=== PATIENT | female | born 1930 | race Hispanic/Latino ===

== ENCOUNTER 2018-02-28 17:29 | Emergency (ER) | payer OTHER ==
--- OUTSIDE RECORDS SUMMARY | 2018-02-28 17:31 | XMS REPORT ---
:1930 [facility] Address [address] [place] [address] [address] Care Team Providers Name Role Phone GEOFF VALDEZ Unavailable Unavailable Problems This patient has no known problems. Allergies, Adverse Reactions, Alerts This patient has no known allergies or adverse reactions. Medications This patient has no known medications. Encounters Start End Encounter Admission Attending Care Care Encounter Date/Time Date/Time Type Type Clinicians Facility Department ID 2017-10-27 2017-11-27 Outpatient C TERA VALDEZ BALANCE PT [id number] 09:40:00 23:59:00 GEOFF
[2018-02-28 18:22] LABS: Urine Blood 1+ (NEG); Urine Glucose NEGATIVE (NEG); Urine Protein TRACE (NEG); Urine Specific Gravity 1.015 (1.005-1.030); Urine pH 5.5 (5.0-7.0)
[2018-02-28 18:35] LABS: Absolute Lymphocytes (CBC) 0.5 K/uL (0.7-4.9); Absolute Monocytes 0.4 K/uL (0.1-1.3); Absolute Neutrophil 5.3 K/uL (1.8-8.0); Basophils % 0.4 % (0-1.3); Eosinophils % 0.2 % (0-4.4); Hematocrit 40.9 % (36.0-45.0); Lymphocytes % 8.7 % (15.3-44.8); MCH 38.5 pg (27.0-35.0); MCV 111.9 fL (80-100); MPV 8.7 fL (7.6-11.3); Monocytes % 6.2 % (3.3-12.3); RBC Red Blood Cell Count 3.66 M/uL (3.86-4.86)
[2018-02-28 18:37] LABS: Protime INR 1.05
[2018-02-28 18:54] LABS: ALT/SGPT 32 U/L (12-78); AST/SGOT 21 U/L (15-37); Albumin 4.3 g/dL (3.4-5.0); Alkaline Phosphatase 75 U/L (45-117); BUN Blood Urea Nitrogen 20 mg/dL (7-18); Bicarbonate 25 mmol/L (21-32); Bilirubin Direct 0.3 mg/dL (0-0.2); Bilirubin Total 1.3 mg/dL (0.2-1.0); Glucose Level 153 mg/dL (74-106); Magnesium 2.4 mg/dL (1.8-2.4); NT PRO-BNP 95 pg/mL (<450); Potassium 4.1 mmol/L (3.5-5.1); Protein, Total 8.8 g/dL (6.4-8.2); Sodium Level 136 mmol/L (136-145); Troponin (Emerg Dept Use Only) < 0.02 ng/mL (0.0-0.045)
[2018-02-28 19:00] LABS: Blood Morphology Comment NOTED (NOT SEEN); Macrocytosis 2+; Platelet Estimate INCR; Urine White Blood Cell Casts OK
[2018-02-28] MEDS ORDERED: NA CHLORIDE 0.9% 1,000 ML ONE (19:17)
[2018-02-28] MEDS ORDERED: ACETAMINOPHEN 500 MG TAB ONE (19:17)
--- NOTE | 2018-02-28 19:36 | RAD REPORT ---
EXAM DESCRIPTION: RAD - Chest Pa And Lat (2 Views) - 02/28/2018 7:04 pm CLINICAL HISTORY: Fever COMPARISON: October 2016 TECHNIQUE: PA and lateral views of the chest were obtained. FINDINGS: The lungs are clear of a peripheral mass or consolidation. No vascular engorgement. Hear t size is normal. Interstitial markings are prominent. This is similar to comparison. No pleural effu krysta or pneumothorax seen. Osteopenic and degenerative bony changes are present. There is bi concave configuration to multiple thoracic vertebrae similar to comparison. No aortic abnormality. IMPRESSION: Chronic interstitial lung disease is present not clearly different from comparison. This could potentially mask early stages of interstitial edema or infiltrate.
[2018-02-28] MEDS ORDERED: CEFTRIAXONE/SWI 1gm 1 GM/10 ML SYR ONE ×2 (20:07→20:23)
--- NOTE | 2018-02-28 20:09 | EDPHYS ---
Physician Documentation [facility] Name: Ruby Reyes Age: 87 yrs Sex: Female : 1930 Arrival Date: 02/28/2018 Time: 17:32 Bed 6 Private MD: ED Physician Jet Wynn HPI: 02/28 17:52 This 87 yrs old Female presents to ER via Ambulatory with complaints of Fever. jmm 17:52 The patient reports fever, not measured (subjective). Onset: The symptoms/episode jmm began/occurred today. Associated signs and symptoms: Pertinent positives: chills, Pertinent negatives: abdominal pain, chest pain, cough, headache, shortness of breath, sore throat. This is an 87 year old female with a history of HTN that presents to the ED with complaints of chills today. Denies chest pain, cough, shortness of breath, abdominal pain, dysuria. . Historical: - Allergies: 17:40 No Known Allergies; hj - Home Meds: 17:40 hydroxyurea 500 mg Oral cap 1 cap twice a day [Active]; telmisartan-hydrochlorothiazid hj 40-12.5 mg oral tab 1 tab once daily [Active]; - PMHx: 17:40 Hypertension; hj - PSHx: 17:40 Knee surgery; hj - Immunization history:: Adult Immunizations up to date. - Social history:: Smoking status: Patient/guardian denies using tobacco, Patient/guardian denies using alcohol. - Ebola Screening: : Patient negative for fever greater than or equal to 101.5 degrees Fahrenheit, and additional compatible Ebola Virus Disease symptoms Patient denies exposure to infectious person Patient denies travel to an Ebola-affected area in the 21 days before illness onset. ROS: 17:52 Cardiovascular: Negative for chest pain, palpitations, and edema, Respiratory: Negative jmm for shortness of breath, cough, wheezing, and pleuritic chest pain, Abdomen/GI: Negative for abdominal pain, nausea, vomiting, diarrhea, and constipation, Neuro: Negative for headache, weakness, numbness, tingling, and seizure. 17:52 Constitutional: Positive for chills, fever. 17:52 All other systems are negative. Exam: 17:52 Constitutional: This is a well developed, well nourished patient who is awake, alert, jmm and in no acute distress. Head/Face: atraumatic. Eyes: EOMI, no conjunctival erythema appreciated ENT: Moist Mucus Membranes Neck: Trachea midline, Supple Chest/axilla: Normal chest wall appearance and motion. 17:52 Cardiovascular: Rate: normal, Rhythm: regular. 17:52 Respiratory: the patient does not display signs of respiratory distress, Respirations: normal, Breath sounds: are clear throughout. 17:52 Abdomen/GI: Inspection: abdomen appears normal, Bowel sounds: normal, Palpation: abdomen is soft and non-tender, in all quadrants. 17:52 Back: ROM is normal. 17:52 Musculoskeletal/extremity: ROM: intact in all extremities. 17:52 Skin: Appearance: Color: normal in color. 17:52 Neuro: Orientation: is normal, Mentation: is normal, Memory: is normal. 17:52 Psych: Behavior/mood is pleasant, cooperative. Vital Signs: 17:41 BP 135 / 61; Pulse 96; Resp 18; Temp 101.1(O); Pulse Ox 93% on R/A; Weight 74.84 kg; hj Height 5 ft. 1 in. (154.94 cm); Pain 0/10; 18:32 BP 155 / 71; Pulse 96; Resp 22; Pulse Ox 95% on R/A; aj1 19:14 BP 151 / 65; Pulse 95; Resp 24; Pulse Ox 94% on R/A; lp1 20:15 BP 133 / 55; Pulse 92; Resp 18; Temp 98.9(O); Pulse Ox 95% on R/A; Pain 0/10; aa1 17:41 Body Mass Index 31.18 (74.84 kg, 154.94 cm) MDM: 17:52 Patient medically screened. [facility] 20:07 Data reviewed: vital signs, nurses notes. Data interpreted:. Counseling: I had a [facility] detailed discussion with the patient and/or guardian regarding: the historical points, exam findings, and any diagnostic results supporting the discharge/admit diagnosis, lab results, radiology results, the need for outpatient follow up, to return to the emergency department if symptoms worsen or persist or if there are any questions or concerns that arise at home. ED course: Patient is alert and non toxic in appearance in the ED. Patient will be prescribed oral antibiotics and is advised to follow up with PCP. Family is given strict return precautions. . 02/28 17:54 Order name: Basic Metabolic Panel [facility] 02/28 17:54 Order name: CBC with Diff [facility] 02/28 17:54 Order name: LFT's [facility] 02/28 17:54 Order name: Magnesium [facility] 02/28 17:54 Order name: NT PRO-BNP [facility] 02/28 17:54 Order name: PT-INR [facility] 02/28 17:54 Order name: Troponin (emerg Dept Use Only) [facility] 02/28 17:56 Order name: Lactate [facility] 02/28 17:56 Order name: Procalcitonin [facility] 02/28 17:56 Order name: Blood Culture Adult (2) [facility] 02/28 17:56 Order name: Flu [facility] 02/28 18:02 Order name: Urine Dipstick--Ancillary (enter results) 02/28 18:22 Order name: Urine Dipstick-Ancillary; Complete Time: 18:30 EDMS 02/28 18:39 Order name: CBC with Automated Diff; Complete Time: 19:07 EDMS 02/28 17:54 Order name: Chest Pa And Lat (2 Views) XRAY [facility] 02/28 18:42 Order name: Protime (+INR); Complete Time: 18:49 EDMS 02/28 18:49 Order name: Influenza Screen (A ; Complete Time: 18:50 EDMS 02/28 18:53 Order name: Lactate; Complete Time: 18:58 EDMS 02/28 18:54 Order name: Basic Metabolic Panel; Complete Time: 18:58 EDMS 02/28 18:54 Order name: Liver (Hepatic) Function; Complete Time: 18:58 EDMS 02/28 18:54 Order name: Troponin (Emerg Dept Use Only); Complete Time: 18:58 EDMS 02/28 18:54 Order name: NT PRO-BNP; Complete Time: 18:58 EDMS 02/28 18:54 Order name: Magnesium; Complete Time: 18:58 EDMS 02/28 19:00 Order name: CBC Smear Scan; Complete Time: 19:07 EDMS 02/28 19:27 Order name: Procalcitonin; Complete Time: 19:48 EDMS 02/28 19:37 Order name: RAD; Complete Time: 19:48 EDMS 02/28 17:54 Order name: EKG; Complete Time: 17:[address] [facility] 02/28 17:54 Order name: Cardiac monitoring; Complete Time: 18:[address] [facility] 02/28 17:54 Order name: EKG - Nurse/Tech; Complete Time: 18:[address] [facility] 02/28 17:54 Order name: IV Saline Lock; Complete Time: 18:[address] [facility] 02/28 17:54 Order name: Labs collected and sent; Complete Time: 18:[address] [facility] 02/28 17:54 Order name: O2 Per Protocol; Complete Time: 18:[address] [facility] 02/28 17:54 Order name: O2 Sat Monitoring; Complete Time: 18:[address] [facility] 02/28 17:54 Order name: Urine Dipstick-Ancillary (obtain specimen); Complete Time: 18:[address] [facility] Administered Medications: 19:13 Drug: NS 0.9% 1000 ml Route: IV; Rate: 1 bolus; Site: right antecubital; lp1 20:15 Follow up: IV Status: Completed infusion aa1 19:14 Drug: Tylenol 1000 mg Route: PO; lp1 20:15 Follow up: Response: No adverse reaction; Temperature is decreased aa1 20:10 Drug: Rocephin 1 grams Route: IV; Rate: calculated rate; Site: right antecubital; aa1 20:15 Follow up: IV Status: Completed infusion aa1 20:11 CANCELLED (Other Intervention Used): Rocephin - (cefTRIAXone) 1 grams IVPB once over 30 aa1 mins; (mix in 50 mL NS) Disposition: 03/01 16:28 Co-signature as Attending Physician, Jet Wynn MD. Disposition: 02/28/18 20:08 Discharged to Home. Impression: Urinary tract infection, site not specified. - Condition is Stable. - Discharge Instructions: Urinary Tract Infection, Adult. - Prescriptions for cefdinir 300 mg Oral capsule - take 1 capsule by ORAL route every 12 hours for 10 days; 20 capsule. - Medication Reconciliation Form, Thank You Letter, Antibiotic Education, Prescription Opioid Use form. - Follow up: Private Physician; When: 2 - 3 days; Reason: Recheck today's complaints, Continuance of care, Re-evaluation by your physician. Signatures: Dispatcher [employer] Yenny Darling RN RN aa1 Eric Peterson PA PA jmm Amanda Orr RN RN lp1 Casey Brian RN RN hj Jet Wynn MD MD gs Corrections: (The following items were deleted from the chart) 02/28 20:11 19:57 Rocephin - (cefTRIAXone) 1 grams IVPB once over 30 mins; (mix in 50 mL NS) aa1 ordered. mae 20:35 20:08 02/28/2018 20:08 Discharged to Home. Impression: Urinary tract infection, site aa1 not specified. Condition is Stable. Forms are Medication Reconciliation Form, Thank You Letter, Antibiotic Education, Prescription Opioid Use. Follow up: Private Physician; When: 2 - 3 days; Reason: Recheck today's complaints, Continuance of care, Re-evaluation by your physician. mae
--- NOTE | 2018-02-28 20:09 | ER ---
Nurse's Notes 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 Transition of care: patient was not received from another setting of care. Onset of symptoms was February 28, 2018. Risk Assessment: Do you want to hurt yourself or someone else? Patient reports no desire to harm self or others. Initial Sepsis Screen: Does the patient meet any 2 criteria? No. Patient's initial sepsis screen is negative. Does the patient have a suspected source of infection? No. Patient's initial sepsis screen is negative. Care prior to arrival: None. 17:37 Method Of Arrival: Ambulatory 17:37 Acuity: MONICA 3 hj Triage Assessment: 17:40 General: Appears in no apparent distress. uncomfortable, Behavior is calm, cooperative, hj appropriate for age. Pain: Denies pain. Historical: - Allergies: 17:40 No Known Allergies; hj - Home Meds: 17:40 hydroxyurea 500 mg Oral cap 1 cap twice a day [Active]; telmisartan-hydrochlorothiazid hj 40-12.5 mg oral tab 1 tab once daily [Active]; - PMHx: 17:40 Hypertension; hj - PSHx: 17:40 Knee surgery; hj - Immunization history:: Adult Immunizations up to date. - Social history:: Smoking status: Patient/guardian denies using tobacco, Patient/guardian denies using alcohol. - Ebola Screening: : Patient negative for fever greater than or equal to 101.5 degrees Fahrenheit, and additional compatible Ebola Virus Disease symptoms Patient denies exposure to infectious person Patient denies travel to an Ebola-affected area in the 21 days before illness onset. Screenin:40 Abuse screen: Denies threats or abuse. Denies injuries from another. Nutritional hj screening: No deficits noted. Tuberculosis screening: No symptoms or risk factors identified. Fall Risk None identified. Assessment: 18:00 General: Appears in no apparent distress. uncomfortable, Behavior is calm, cooperative, aj1 appropriate for age. Pain: Denies pain. Neuro: Level of Consciousness is awake, alert, obeys commands. Cardiovascular: Patient's skin is warm and dry. Rhythm is regular. Respiratory: Airway is patent Respiratory effort is even, unlabored, Respiratory pattern is regular, symmetrical, Breath sounds are clear bilaterally. GI: No signs and/or symptoms were reported involving the gastrointestinal system. : No signs and/or symptoms were reported regarding the genitourinary system. EENT: No signs and/or symptoms were reported regarding the EENT system. Derm: No signs and/or symptoms reported regarding the dermatologic system. Musculoskeletal: No signs and/or symptoms reported regarding the musculoskeletal system. 19:14 Reassessment: Patient appears in no apparent distress at this time. General: Behavior lp1 is calm, Reports chills for. Pain: Denies pain. Neuro: Level of Consciousness is awake, alert, obeys commands, Oriented to person, place, situation. Respiratory: Respiratory effort is even. Derm: Skin is pink, warm \T\ dry. 20:15 Reassessment: Patient appears in no apparent distress at this time. Patient is alert, aa1 oriented x 3, equal unlabored respirations, skin warm/dry/pink. Discussed d/c \T\ f/u instructions with pt \T\ family; denies questions or concerns at this time Patient states feeling better. Vital Signs: 17:41 BP 135 / 61; Pulse 96; Resp 18; Temp 101.1(O); Pulse Ox 93% on R/A; Weight 74.84 kg; Height 5 ft. 1 in. (154.94 cm); Pain 0/10; 18:32 BP 155 / 71; Pulse 96; Resp 22; Pulse Ox 95% on R/A; aj1 19:14 BP 151 / 65; Pulse 95; Resp 24; Pulse Ox 94% on R/A; lp1 20:15 BP 133 / 55; Pulse 92; Resp 18; Temp 98.9(O); Pulse Ox 95% on R/A; Pain 0/10; aa1 17:41 Body Mass Index 31.18 (74.84 kg, 154.94 cm) ED Course: 17:32 Patient arrived in ED. as 17:39 Triage completed. hj 17:41 Arm band placed on right wrist. hj 17:41 Patient has correct armband on for positive identification. Bed in low position. Call hj light in reach. Side rails up X 1. Adult w/ patient. 17:44 Eric Peterson PA is PHCP. [facility] 17:44 Jet Wynn MD is Attending Physician. [facility] 17:50 Flory Cummings RN is Primary Nurse. aj1 18:00 No provider procedures requiring assistance completed. aj1 18:33 Inserted saline lock: 20 gauge in right antecubital area, using aseptic technique. aj1 Blood collected. 18:34 Initial lab(s) drawn, by wa, sent to lab. First set of blood cultures drawn by me. aj1 18:56 Second set of blood cultures drawn by me, by venipuncture 23G to left wrist. dh3 19:01 X-ray completed. Patient tolerated procedure well. sg4 20:15 IV discontinued, intact, bleeding controlled, No redness/swelling at site. Pressure aa1 dressing applied. Administered Medications: 19:13 Drug: NS 0.9% 1000 ml Route: IV; Rate: 1 bolus; Site: right antecubital; lp1 20:15 Follow up: IV Status: Completed infusion aa1 19:14 Drug: Tylenol 1000 mg Route: PO; lp1 20:15 Follow up: Response: No adverse reaction; Temperature is decreased aa1 20:10 Drug: Rocephin 1 grams Route: IV; Rate: calculated rate; Site: right antecubital; aa1 20:15 Follow up: IV Status: Completed infusion aa1 20:11 CANCELLED (Other Intervention Used): Rocephin - (cefTRIAXone) 1 grams IVPB once over 30 aa1 mins; (mix in 50 mL NS) Outcome: 20:08 Discharge ordered by . jm 20:15 Discharged to home ambulatory, with family. aa1 20:15 Condition: stable 20:15 Instructed on discharge instructions, follow up and referral plans. medication usage, Demonstrated understanding of instructions, follow-up care, medications, Prescriptions given X 1. 20:35 Patient left the ED. aa1 Addendum: 03/06/2018 07:49 Addendum: Culture Results: Positive blood culture. pt was advised to follow up with PCP i w after discharge, culture report reviewed by LALIT Wright, no further action needed. Signatures: Flory Cummings, RN RN aj1 Yenny Morales RN RN aa1 Eric Peterson PA PA jmm Martinez, Amelia as Williams, Irene, RN FLORENCIA iw Amanda Orr RN RN lp1 Casey Brian RN RN Renetta Laguerre 3 Cheryl De Jesus 4 Corrections: (The following items were deleted from the chart) 02/28 17:43 17:41 Pulse 96bpm; Resp 18bpm; Pulse Ox 93% RA; Temp 101.1F Oral; 74.84 kg; Height 5 hj ft. 1 in.; BMI: 31.1; Pain 0/10; hj
[2018-02-28 20:44] VITALS: BP 133/55; TEMP 98.9; O2SAT 95
--- NOTE | 2018-03-01 07:05 | EKG ---
Test Date: 2018-02-28 Test Time: 18:04:55 Clipper Counters: SARA MEASUREMENT RESULTS: Intervals: Rate: 92 MN: 190 QRSD: 82 QT: 356 QTc: 440 [place]: P: 36 MN: 190 QRS: 27 T: 62 INTERPRETIVE STATEMENTS: Sinus rhythm with marked sinus arrhythmia Nonspecific ST and T wave abnormality Abnormal ECG No previous ECG available for comparison Electronically Signed On 03-01-18 07:03:58 BOTTOMER OPERATOR by Jon Sol
== END 2018-02-28 20:35 | disposition home or self-care (01) ==
LOC: ER 17:29
DX: N39.0 Urinary tract infection, site not specified (principal); I10 Essential (primary) hypertension
CPT/HCPCS: 36415; 71046; 80048; 80076; 81003; 83605; 83735; 83880; 84145; 84484; 85025; 85610; 87040 ×2; 87077; 87186; 87205; 87804 ×2; 93005; 96361; 96374; 99284; J0696 ×2; J7030

== ENCOUNTER 2019-10-08 09:23 | Emergency (ER) | payer OTHER ==
--- OUTSIDE RECORDS SUMMARY | 2019-10-08 09:26 | XMS REPORT | Continuity of Care Document ---
:1930 Author Organization [facility] t Address [address] [place] [address] Dr. Hansen [address] [place] [id number] Care Team Providers Name Role Phone COURTNEY Attending Clinician Unavailable COURTNEY Admitting Clinician Unavailable Problems This patient has no known problems. Allergies, Adverse Reactions, Alerts This patient has no known allergies or adverse reactions. Medications This patient has no known medications. Procedures This patient has no known procedures. Encounters Start End Encounter Admission Attending Care Care Encounter Source Date/Time Date/Time Type Type Clinicians Facility Department ID 2017-10-27 2017-11-27 Outpatient C TERA VALDEZ BALANCE PT [id number] [facility] 09:40:00 23:59[facility]00 [facility] Results This patient has no known results.
[2019-10-08 10:32] LABS: Urine Blood TRACE (NEG); Urine Glucose NEGATIVE (NEG); Urine Protein TRACE (NEG); Urine Specific Gravity 1.025 (1.005-1.030)
[2019-10-08 10:54] LABS: Absolute Lymphocytes (CBC) 0.6 K/uL (0.7-4.9); Basophils % 0.3 % (0-1.3); Hematocrit 31.2 % (36.0-45.0); Lymphocytes % 14.2 % (15.3-44.8); MPV 8.8 fL (7.6-11.3); RBC Red Blood Cell Count 2.83 M/uL (3.86-4.86)
[2019-10-08] MEDS ORDERED: ACETAMINOPHEN 500 MG TAB ONE (11:05)
[2019-10-08 11:15] LABS: Albumin 3.5 g/dL (3.4-5.0); Bilirubin Total 0.9 mg/dL (0.2-1.0); Potassium 4.2 mmol/L (3.5-5.1); Protein, Total 8.1 g/dL (6.4-8.2)
--- NOTE | 2019-10-08 11:24 | RAD REPORT ---
EXAM DESCRIPTION: RAD - Chest Single View - 10/08/2019 10:30 am CLINICAL HISTORY: COUGH, decreased taste sensation, spouse with COVID infection COMPARISON: Two view chest February 2018 TECHNIQUE: AP portable chest image was obtained 10/08/2019 10:30 am . FINDINGS: No focal consolidations seen. Patient has a prominent baseline interstitial pattern increa sed from a slightly more shallow inspiratory effort. Hazy airspace opacification is present. Mild car diomegaly is present. There is mild vascular engorgement as well. Trachea is midline. No measurable p leural effusion and no pneumothorax. No acute bony abnormality seen. No acute aortic findings suspect ed. IMPRESSION: Mild cardiomegaly, vascular engorgement and prominent interstitial pattern would all be consistent with a minimal failure or volume overload superimposed on chronic interstitial lung diseas e. Patient does have some patchy bilateral alveolar opacification. In the setting of a spouse with posit siobhan COVID test, early COVID-19 pneumonia cannot be excluded.
[2019-10-08] MEDS ORDERED: NA CHLORIDE 0.9% 1,000 ML ONE (11:55)
[2019-10-08] MEDS ORDERED: dexAMETHasone 10 MG/ML VIAL ONE (11:55)
[2019-10-08 12:24] LABS: Blood Morphology Comment NOT SEEN (NOT SEEN); Platelet Estimate ADEQ; Urine White Blood Cell Casts OK
--- NOTE | 2019-10-08 12:45 | ER ---
Nurse's Notes [facility] Name: Ruby Reeys Age: 88 yrs Sex: Female : 1930 Arrival Date: 10/08/2019 Time: 09:27 Bed 18 Private MD: Diagnosis: Coronavirus as the cause of diseases classified elsewhere;Dehydration Presentation: 10/07 09:50 Chief complaint: Patient states: that she feels anxious and has not had much of an appetite, food does not taste good to her. Legs feel achy. currently has covid. Coronavirus screen: Patient denies a cough. Patient denies shortness of breath or difficulty breathing. Patient reports a measured and/or subjective temperature greater than 100.4F. Patient denies travel on a cruise ship or to a country the [facility] currently lists as an affected area. Patient reports contact with known and/or suspected case of COVID-19. Patient instructed to continue to wear a mask when interacting with others. Patient moved to private room, placed in contact and droplet isolation with eye protection until further assessment. Ebola Screen: No symptoms or risks identified at this time. Initial Sepsis Screen: Does the patient meet any 2 criteria? No. Patient's initial sepsis screen is negative. Does the patient have a suspected source of infection? No. Patient's initial sepsis screen is negative. Risk Assessment: Do you want to hurt yourself or someone else? Patient reports no desire to harm self or others. Onset of symptoms is unknown. 09:50 Method Of Arrival: Ambulatory 09:50 Acuity: MONICA 3 Historical: - Allergies: 09:55 No Known Allergies; - PMHx: 09:55 Hypertension; - PSHx: 09:55 Cholecystectomy; - Immunization history:: Adult Immunizations unknown. - Social history:: Smoking status: Patient denies any tobacco usage or history of. Screenin:52 Abuse screen: Denies threats or abuse. Nutritional screening: No deficits noted. Tuberculosis screening: No symptoms or risk factors identified. Fall Risk None identified. Assessment: 10:10 General: Appears in no apparent distress. Behavior is calm, cooperative, appropriate for age. Pain: Complains of pain in sudha legs. Neuro: Level of Consciousness is awake, alert, obeys commands, Oriented to person, place, time, situation. Cardiovascular: Capillary refill < 3 seconds Patient's skin is warm and dry. Respiratory: Airway is patent Respiratory effort is even, unlabored. GI: Patient currently denies nausea, vomiting, decreased appetite and sense of taste. Derm: Skin is intact, is healthy with good turgor, Skin is dry. 11:15 Reassessment: Patient and/or family updated on plan of care and expected duration. Pain ah level reassessed. Patient is alert, oriented x 3, equal unlabored respirations, skin warm/dry/pink. No needs voiced. 13:00 Reassessment: Called granddaughter to give her an update and let her know she was ready ah for discharge, upon entering the room the fluids were still running. Informed granddaughter we would notify her when fluids were finished. Granddaughter voiced understanding. 14:35 Reassessment: Fluids completed. Pt toletated well. Vital Signs: 09:50 BP 139 / 54; Pulse 82; Resp 16; Temp 100.2; Pulse Ox 94% ; ah 13:45 BP 128 / 54; Pulse 74; Resp 16; Pulse Ox 96% ; ah ED Course: 09:27 Patient arrived in ED. ag5 09:33 Magdi Harper, TIGHTENER is PHCP. pm1 09:33 Raphael Lindo MD is Attending Physician. pm1 09:50 Trudi Sol, RN is Primary Nurse. 09:54 Triage completed. 10:31 CXR XRAY In Process Unspecified. EDMS 10:37 Patient has correct armband on for positive identification. Placed in gown. Bed in low mh5 position. Call light in reach. Side rails up X 1. Pillow given. quality assurance monitor chassis on. Pulse ox on. NIBP on. 10:37 EKG done, by ED staff, reviewed by Magdi Harper NP. mh5 10:52 Arm band placed on right wrist. Patient notified of wait time. 11:58 Inserted saline lock: 22 gauge in right antecubital area, using aseptic technique. hb Blood collected. 14:36 No provider procedures requiring assistance completed. IV discontinued, intact, ah bleeding controlled, No redness/swelling at site. Pressure dressing applied. Administered Medications: 10:55 Drug: Tylenol 1000 mg Route: PO; 12:10 Follow up: Response: No adverse reaction 11:58 Drug: NS 0.9% 1000 ml Route: IV; Rate: 1000 ml; Site: right antecubital; hb 12:43 Follow up: Response: No adverse reaction; IV Status: Completed infusion 11:59 Drug: Decadron - Dexamethasone 10 mg Route: IVP; Site: right antecubital; hb 12:43 Follow up: Response: No adverse reaction Outcome: 12:44 Discharge ordered by MD. pm1 14:35 Discharged to home ambulatory. 14:35 Condition: good 14:35 Discharge instructions given to patient, Instructed on discharge instructions, follow up and referral plans. Demonstrated understanding of instructions, follow-up care, Prescriptions given X 1. 14:36 Patient left the ED. Signatures: Dispatcher [employer] Magdi Vieyra NP TIGHTENER pm1 Janine Ríos, RN RN Daisy Scott [facility] Jessica Lentz 5 Trudi Sol RN RN
--- NOTE | 2019-10-08 12:45 | EDPHYS ---
Physician Documentation [facility] Name: Ruby Reyes Age: 88 yrs Sex: Female : 1930 Arrival Date: 10/08/2019 Time: 09:27 Bed 18 Private MD: ED Physician Raphael Lindo HPI: 10/07 10:04 This 88 yrs old Female presents to ER via Ambulatory with complaints of pm1 Decreased Appetite, Weakness, Leg Pain, Back Pain. 10:04 Decreased appetite, food tastes different, generalized weakness and body aches. Onset: pm1 The symptoms/episode began/occurred yesterday. Severity of symptoms: in the emergency department the symptoms are worse. The patient has not experienced similar symptoms in the past. Patient's family member was diagnosed with covid-19, was hospitalized and discharged today. Patient without chest pain, shortness of breath, or cough. Historical: - Allergies: 09:55 No Known Allergies; ah - PMHx: 09:55 Hypertension; ah - PSHx: 09:55 Cholecystectomy; ah - Immunization history:: Adult Immunizations unknown. - Social history:: Smoking status: Patient denies any tobacco usage or history of. ROS: 10:04 Eyes: Negative for injury, pain, redness, and discharge, ENT: Negative for injury, pm1 pain, and discharge, Neck: Negative for injury, pain, and swelling, Cardiovascular: Negative for chest pain, palpitations, and edema, Respiratory: Negative for shortness of breath, cough, wheezing, and pleuritic chest pain, Abdomen/GI: Negative for abdominal pain, nausea, vomiting, diarrhea, and constipation, Back: Negative for injury and pain, : Negative for injury, bleeding, discharge, and swelling, MS/Extremity: Negative for injury and deformity, Skin: Negative for injury, rash, and discoloration. 10:04 Constitutional: Positive for body aches, poor PO intake, Negative for chills, fever. 10:04 Neuro: Positive for Generalized weakness, Negative for altered mental status, dizziness, headache, numbness, tingling. Exam: 10:04 Constitutional: This is a well developed, well nourished patient who is awake, alert, pm1 and in no acute distress. Head/Face: Normocephalic, atraumatic. 10:04 Back: No spinal tenderness. No costovertebral tenderness. Full range of motion. Skin: Warm, dry with normal turgor. Normal color with no rashes, no lesions, and no evidence of cellulitis. MS/ Extremity: Pulses equal, no cyanosis. Neurovascular intact. Full, normal range of motion. 10:04 Cardiovascular: Exam negative for acute changes, Rate: normal, Rhythm: regular, Pulses: no pulse deficits are appreciated, Edema: is not appreciated. 10:04 Respiratory: Exam negative for acute changes, respiratory distress, shortness of breath. 10:04 Abdomen/GI: Exam negative for acute changes, Inspection: abdomen appears normal, Palpation: abdomen is soft and non-tender, in all quadrants, mass, is not appreciated. 10:04 Neuro: Exam negative for acute changes, Orientation: is normal, Mentation: is normal, Motor: is normal, moves all fours. Vital Signs: 09:50 BP 139 / 54; Pulse 82; Resp 16; Temp 100.2; Pulse Ox 94% ; ah 13:45 BP 128 / 54; Pulse 74; Resp 16; Pulse Ox 96% ; ah MDM: 09:34 Patient medically screened. pm1 11:20 ED course: Patient's covid-19 test canceled. Patient's covid-19 test results returned pm1 to today and was positive. Patient's positive for covid-19. 11:39 Data reviewed: vital signs. pm1 12:43 Counseling: I had a detailed discussion with the patient and/or guardian regarding: the pm1 historical points, exam findings, and any diagnostic results supporting the discharge/admit diagnosis, lab results, radiology results, the need for outpatient follow up, to return to the emergency department if symptoms worsen or persist or if there are any questions or concerns that arise at home. 10/07 09:58 Order name: COVID-19 pm1 10/07 09:58 Order name: Flu; Complete Time: 12:07 pm10/07 09:58 Order name: Strep; Complete Time: 11:54 pm1 10/07 09:58 Order name: CBC with Diff; Complete Time: 12:31 pm10/07 09:58 Order name: CMP; Complete Time: 11:21 pm1 10/07 10:04 Order name: Urine Dipstick--Ancillary (enter results); Complete Time: 10:35 eb 10/07 09:58 Order name: CXR XRAY; Complete Time: 11:36 pm1 10/07 11:53 Order name: Throat Culture [facility] 10/07 12:23 Order name: CBC Smear Scan [facility] 10/07 12:24 Order name: Manual Differential; Complete Time: 12:31 [facility] 10/07 09:58 Order name: Droplet/Contact Precautions; Complete Time: 12:11 pm1 10/07 09:58 Order name: Labs collected and sent; Complete Time: 12:11 pm10/07 09:58 Order name: O2 Per Protocol; Complete Time: 12:11 pm1 10/07 09:58 Order name: IV Saline Lock; Complete Time: 11:59 pm 10/07 10:02 Order name: Urine Dipstick-Ancillary (obtain specimen); Complete Time: 10:37 pm1 Administered Medications: 10:55 Drug: Tylenol 1000 mg Route: PO; ah 12:10 Follow up: Response: No adverse reaction ah 11:58 Drug: NS 0.9% 1000 ml Route: IV; Rate: 1000 ml; Site: right antecubital; hb 12:43 Follow up: Response: No adverse reaction; IV Status: Completed infusion 11:59 Drug: Decadron - Dexamethasone 10 mg Route: IVP; Site: right antecubital; hb 12:43 Follow up: Response: No adverse reaction Disposition: 22:07 Co-signature as Attending Physician, Raphael Lindo MD I agree with the assessment and trent plan of care. Disposition: 10/08/19 12:44 Discharged to Home. Impression: Coronavirus as the cause of diseases classified elsewhere, Dehydration. - Condition is Stable. - Discharge Instructions: Dehydration, Elderly, Rehydration, Elderly, COVID-19. - Prescriptions for prednisone 10 mg Oral tablet - take 1 tablet by ORAL route every 12 hours for 7 days; 14 tablet. - Medication Reconciliation Form, Thank You Letter, Antibiotic Education, Prescription Opioid Use form. - Follow up: Emergency Department; When: As needed; Reason: Worsening of condition. Follow up: Private Physician; When: 2 - 3 days; Reason: Recheck today's complaints, Continuance of care, Re-evaluation by your physician. - Problem is new. - Symptoms have improved. Signatures: Dispatcher [employer] EDMS Raphael Lindo MD MD cha Marinas, Patrick, LALIT ASSISTANT MEDIA PLANNER pm1 Janine Ríos, RN RN Trudi Sol RN RN Corrections: (The following items were deleted from the chart) 12: 09:58 Document PUI# ordered. pm1 12:11 09:58 Notify Health Dept [phone]/ ordered. pm1 14:36 12:44 10/08/2019 12:44 Discharged to Home. Impression: Coronavirus as the cause of diseases classified elsewhere; Dehydration. Condition is Stable. Discharge Instructions: Dehydration, Elderly, Rehydration, Elderly, COVID-19. Prescriptions for prednisone 10 mg Oral tablet - take 1 tablet by ORAL route every 12 hours for 7 days; 14 tablet. and Forms are Medication Reconciliation Form, Thank You Letter, Antibiotic Education, Prescription Opioid Use. Follow up: Emergency Department; When: As needed; Reason: Worsening of condition. Follow up: Private Physician; When: 2 - 3 days; Reason: Recheck today's complaints, Continuance of care, Re-evaluation by your physician. Problem is new. Symptoms have improved. pm1
[2019-10-08 15:12] VITALS: BP 128/54; O2SAT 96
[2019-10-08 15:14] VITALS: TEMP 100.2
== END 2019-10-08 14:36 | disposition home or self-care (01) ==
LOC: ER 09:23
DX: U07.1 COVID-19 (principal); E86.0 Dehydration; I10 Essential (primary) hypertension
CPT/HCPCS: 96361; 93005; 87070; 85025; 36415; 87081; 81003; 80053; 87804 ×2; 71045; 96374; 99284; J1100; J7030

== ENCOUNTER 2019-10-17 09:04 | Emergency (ER) | payer OTHER ==
--- OUTSIDE RECORDS SUMMARY | 2019-10-17 10:12 | XMS REPORT | Continuity of Care Document ---
:1930 Author Organization [facility] t Address [address] [place] [address] Dr. Hansen [address] [place] [id number] Care Team Providers Name Role Phone COURTNEY [...] 2017-11-27 Outpatient C TERA VALDEZ BALANCE PT [phone] [facility] 09:40:00 23:59:00 [facility] Results This patient has no known results.
[2019-10-17] MEDS ORDERED: NA CHLORIDE 0.9% 1,000 ML ONE (10:15)
[2019-10-17 10:35] LABS: Absolute Lymphocytes (CBC) 0.8 K/uL (0.7-4.9); Basophils % 0.1 % (0-1.3); Hematocrit 29.9 % (36.0-45.0); Lymphocytes % 8.4 % (15.3-44.8); MPV 8.7 fL (7.6-11.3); RBC Red Blood Cell Count 2.71 M/uL (3.86-4.86)
[2019-10-17 10:51] LABS: ALT/SGPT 38 U/L (12-78); AST/SGOT 18 U/L (15-37); Alkaline Phosphatase 56 U/L (45-117); BUN Blood Urea Nitrogen 26 mg/dL (7-18); Bicarbonate 25 mmol/L (21-32); Bilirubin Direct 0.2 mg/dL (0-0.2); Glucose Level 174 mg/dL (74-106); Magnesium 2.2 mg/dL (1.8-2.4); NT PRO-BNP 100 pg/mL (<450); Potassium 4.1 mmol/L (3.5-5.1); Protein, Total 8.3 g/dL (6.4-8.2); Sodium Level 135 mmol/L (136-145); Troponin (Emerg Dept Use Only) < 0.02 ng/mL (0.0-0.045)
--- NOTE | 2019-10-17 11:06 | RAD REPORT ---
EXAM DESCRIPTION: RAD - Chest Single View - 10/17/2019 11:00 am CLINICAL HISTORY: DYSPNEA, cough, recent COVID positive diagnosis COMPARISON: October 07 TECHNIQUE: AP portable chest image was obtained 10/17/2019 11:00 am . FINDINGS: Lung volumes are low. No focal area of dense consolidation. Patient does have patchy hazy airspace opacification in both lung king. Findings are suspicious for a COVID-19 pneumonia. No failure or volume overload suspected peer heart size is normal. No measurable pleural effusion and no pneumothorax. No acute bony abnormality seen. No acute aortic findings suspected. IMPRESSION: Patchy bilateral lung parenchymal opacification suspicious for COVID-19 pneumonia.
--- NOTE | 2019-10-17 11:22 | RAD REPORT ---
EXAM DESCRIPTION: CT - Chest For Pe Angio - 10/17/2019 11:11 am CLINICAL HISTORY: r/o pe r/o pe , cough, shortness of breath, positive COVID test COMPARISON: Chest Single View dated 10/17/2019 TECHNIQUE: Dynamically enhanced 3 mm thick images of the chest were obtained during administration o f approximately 150mL Isovue 370 IV contrast. Coronal and oblique MIP reconstruction images were gene rated and reviewed. Exam utilizes a protocol to evaluate the pulmonary arterial tree. All CT scans are performed using dose optimization technique as appropriate and may include automated exposure control or mA/KV adjustment according to patient size. FINDINGS: No pulmonary emboli are identified. The aorta as imaged shows no acute or suspicious finding. No pericardial thickening or effusion. Ground-glass opacification is scattered throughout all the lung king. This is more peripheral than central. This is a very commonly described COVID-19 pneumonia pattern. No mass or consolidation. No p leural effusion or pleural thickening. No mediastinal or hilar suspicious masses. No chest wall masses or abnormal axillary lymphadenopathy. IMPRESSION: No pulmonary emboli identified. Bilateral ground-glass opacification in a pattern very commonly seen with COVID-19 pneumonia.
--- NOTE | 2019-10-17 11:47 | ER ---
Nurse's Notes [facility] Name: Ruby Reyes Age: 88 yrs Sex: Female : 1930 Arrival Date: 10/17/2019 Time: 09:08 Bed 15 Private MD: Diagnosis: Dyspnea;Pneumonia, unspecified organism-bilateral multifocal Presentation: 10/16 09:32 Chief complaint: Patient states: has been SOB and has mild cough, fatigue, no fever, iw was diagnosed with COVID last week or the week before. 09:33 Coronavirus screen: Client denies travel out of the [place] in the last 14 days. cough iw unrelated to allergies, difficulty breathing, fatigue, Client presents with at least one sign or symptom that may indicate coronavirus-19. Standard/surgical mask placed on the client. Provider contacted for isolation considerations. Ebola Screen: Patient negative for fever greater than or equal to 101.5 degrees Fahrenheit, and additional compatible Ebola Virus Disease symptoms Patient denies exposure to infectious person. Patient denies travel to an Ebola-affected area in the 21 days before illness onset. No symptoms or risks identified at this time. Initial Sepsis Screen: Does the patient meet any 2 criteria? No. Patient's initial sepsis screen is negative. Does the patient have a suspected source of infection? No. Patient's initial sepsis screen is negative. Risk Assessment: Do you want to hurt yourself or someone else? Patient reports no desire to harm self or others. Onset of symptoms. 09:33 Method Of Arrival: Wheelchair iw 09:33 Acuity: MONICA 3 iw Historical: - Allergies: 09:37 No Known Allergies; iw - Home Meds: 09:36 hydroxyurea 500 mg Oral cap 1 cap twice a day [Active]; telmisartan-hydrochlorothiazid iw 40-12.5 mg Oral tab 1 tab once daily [Active]; 10:53 metformin 500 mg Oral Tb24 2 times per day [Active]; atorvastatin 20 mg oral tab 1 tab aa5 once daily [Active]; Boniva 150 mg oral tab once a month [Active]; - PMHx: 09:36 Hypertension; iw - PSHx: 09:36 Cholecystectomy; iw 09:58 L knee; aa5 - Immunization history:: Adult Immunizations unknown. - Social history:: Smoking status: Patient denies any tobacco usage or history of. - Family history:: not pertinent. Screenin:15 Abuse screen: Denies threats or abuse. Nutritional screening: No deficits noted. aa5 Tuberculosis screening: No symptoms or risk factors identified. Fall Risk No fall in past 12 months (0 pts). No secondary diagnosis (0 pts). IV access (20 points). Ambulatory Aid- Crutches/Cane/Walker (15 pts). Mental Status- Oriented to own ability (0 pts). Total Maguire Fall Scale indicates Low Risk Score (25-44 pts). Fall prevention measures have been instituted. Side Rails Up X 2 Placed close to Nursing Station. Assessment: 09:45 General: Appears uncomfortable, Behavior is calm, cooperative. Pain: Denies pain. aa5 Neuro: Level of Consciousness is awake, alert, obeys commands, Oriented to person, place, time, situation. Cardiovascular: Heart tones S1 S2 present Rhythm is sinus rhythm. Respiratory: Reports shortness of breath at rest since 1 week ago, pt states "I don't feel like it's worse, it's about the same (referring to SOB)" cough that is dry, Airway is patent Respiratory effort is even, unlabored, Respiratory pattern is regular, symmetrical, tachypnea 24 breaths/min at this time Breath sounds are clear bilaterally. GI: Abdomen is round non-distended, Abd is soft and non tender X 4 quads. : No signs and/or symptoms were reported regarding the genitourinary system. EENT: No signs and/or symptoms were reported regarding the EENT system. Derm: Skin is pink, warm \\T\\ dry. Musculoskeletal: Range of motion: intact in all extremities. 10:35 Reassessment: Patient is alert, oriented x 3, equal unlabored respirations, skin aa5 warm/dry/pink. Pt notified of wait time for lab results, chest x-ray completed at bedside at this time. . 11:00 Reassessment: Patient is alert, oriented x 3, equal unlabored respirations, skin aa5 warm/dry/pink. Pt assisted with bedpan, pt voided once. . 12:00 Reassessment: Patient is alert, oriented x 3, equal unlabored respirations, skin aa5 warm/dry/pink. Pt assisted with bedpan, pt voided once. . 12:20 Reassessment: Hospitalist (Per Mccullough, LALIT) at bedside. . aa5 13:00 Reassessment: Patient is alert, oriented x 3, equal unlabored respirations, skin aa5 warm/dry/pink. Awaiting ride home. . Vital Signs: 09:33 BP 116 / 58; Pulse 90; Resp 16 S; Temp 98.8(O); Pulse Ox 96% on R/A; iw 10:00 BP 130 / 60; Pulse 95; Resp 18 S; Pulse Ox 95% on R/A; aa5 10:30 BP 106 / 60; Pulse 82; Resp 16 S; Pulse Ox 94% on R/A; aa5 11:00 BP 111 / 60; Pulse 68; Resp 16 S; Pulse Ox 96% on R/A; aa5 12:00 BP 128 / 67; Pulse 73; Resp 16 S; Temp 98.7(O); Pulse Ox 96% on R/A; aa5 13:00 BP 145 / 63; Pulse 68; Resp 18 S; Pulse Ox 95% on R/A; aa5 ED Course: 09:08 Patient arrived in ED. ag5 09:35 Triage completed. iw 09:38 Raphael Lindo MD is Attending Physician. trent 09:40 Patient has correct armband on for positive identification. Placed in gown. Bed in low aa5 position. Call light in reach. Side rails up X2. 09:40 monitoring tech on. Pulse ox on. NIBP on. aa5 09:52 Haily Riddle, RN is Primary Nurse. aa5 10:15 Inserted saline lock: 20 gauge in right forearm, using aseptic technique. Blood aa5 collected. 10:15 Initial lab(s) drawn, by oh, sent to lab. First set of blood cultures drawn by me. aa5 10:30 Second set of blood cultures drawn by me. aa5 11:00 XRAY Chest (1 view) In Process Unspecified. EDMS 11:11 Chest For PE Angio CT In Process Unspecified. EDMS 11:45 Prince Saucedo MD is Hospitalizing Provider. trent 12:39 Srinath Diaz MD is Referral Physician. trent 13:25 No provider procedures requiring assistance completed. IV discontinued, intact, aa5 bleeding controlled, No redness/swelling at site. Pressure dressing applied. Administered Medications: 10:31 Drug: NS 0.9% 1000 ml Route: IV; Rate: 125 ml/hr; Site: right forearm; aa5 13:15 Drug: predniSONE 20 mg Route: PO; aa5 Outcome: 11:46 Decision to Hospitalize by Provider. trent 12:40 Discharge ordered by . trent 13:25 Discharged to home via wheelchair, with family. aa5 13:25 Condition: stable 13:25 Discharge instructions given to patient, and daughter Instructed on discharge instructions, follow up and referral plans. medication usage, Demonstrated understanding of instructions, follow-up care, medications, Prescriptions given X 1. 13:33 Patient left the ED. aa5 Signatures: Dispatcher [employer] EDMS Raphael Lindo MD MD cha Williams, Irene RN Haily Martinez RN RN aa5 Jessica Lentz Lynsay, RN RN ll1 Corrections: (The following items were deleted from the chart) 09:35 09:32 Chief complaint: Patient states: has been SOB and has mild cough, fatigue, no iw fever ll1 10:37 09:45 Respiratory: Reports shortness of breath at rest since 1 week ago, pt states "I aa5 don't feel like it's worse, it's about the same (referring to SOB)" cough that is dry, Airway is patent Respiratory effort is even, unlabored, Respiratory pattern is regular, symmetrical, tachypnea 24 breaths/min at this time aa5
--- NOTE | 2019-10-17 11:47 | EDPHYS ---
Physician Documentation [facility] Name: Ruby Reyes Age: 88 yrs Sex: Female : 1930 Arrival Date: 10/17/2019 Time: 09:08 Bed 15 Private MD: ED Physician Raphael Lindo HPI: 10/16 09:52 This 88 yrs old Female presents to ER via Wheelchair with complaints of trent Shortness Of Breath. 09:52 The patient has shortness of breath at rest, with light activity. Onset: The trent symptoms/episode began/occurred 3 day(s) ago. Duration: The symptoms are continuous, and are steadily getting worse. The patient's shortness of breath has no apparent modifying factors. Associated signs and symptoms: Pertinent positives: non-productive cough. Severity of symptoms: At their worst the symptoms were moderate in the emergency department the symptoms are unchanged. The patient has experienced similar episodes in the past, a few times. Historical: - Allergies: 09:37 No Known Allergies; iw - Home Meds: 09:36 hydroxyurea 500 mg Oral cap 1 cap twice a day [Active]; telmisartan-hydrochlorothiazid iw 40-12.5 mg Oral tab 1 tab once daily [Active]; 10:53 metformin 500 mg Oral Tb24 2 times per day [Active]; atorvastatin 20 mg oral tab 1 tab aa5 once daily [Active]; Boniva 150 mg oral tab once a month [Active]; - PMHx: 09:36 Hypertension; iw - PSHx: 09:36 Cholecystectomy; iw 09:58 L knee; aa5 - Immunization history:: Adult Immunizations unknown. - Social history:: Smoking status: Patient denies any tobacco usage or history of. - Family history:: not pertinent. ROS: 09:52 Constitutional: Negative for fever, chills, and weight loss, Eyes: Negative for injury, trent pain, redness, and discharge, ENT: Negative for injury, pain, and discharge, Neck: Negative for injury, pain, and swelling, Cardiovascular: Negative for chest pain, palpitations, and edema, Abdomen/GI: Negative for abdominal pain, nausea, vomiting, diarrhea, and constipation, Back: Negative for injury and pain, : Negative for injury, bleeding, discharge, and swelling, MS/Extremity: Negative for injury and deformity, Skin: Negative for injury, rash, and discoloration, Neuro: Negative for headache, weakness, numbness, tingling, and seizure, Psych: Negative for depression, anxiety, suicide ideation, homicidal ideation, and hallucinations, Allergy/Immunology: Negative for hives, rash, and allergies, Endocrine: Negative for neck swelling, polydipsia, polyuria, polyphagia, and marked weight changes, Hematologic/Lymphatic: Negative for swollen nodes, abnormal bleeding, and unusual bruising. 09:52 Respiratory: Positive for cough, shortness of breath, at rest. Exam: 09:52 Constitutional: This is a well developed, well nourished patient who is awake, alert, trent and in no acute distress. Head/Face: Normocephalic, atraumatic. Eyes: Pupils equal round and reactive to light, extra-ocular motions intact. Lids and lashes normal. Conjunctiva and sclera are non-icteric and not injected. Cornea within normal limits. Periorbital areas with no swelling, redness, or edema. ENT: Nares patent. No nasal discharge, no septal abnormalities noted. Tympanic membranes are normal and external auditory canals are clear. Oropharynx with no redness, swelling, or masses, exudates, or evidence of obstruction, uvula midline. Mucous membranes moist. Neck: Trachea midline, no thyromegaly or masses palpated, and no cervical lymphadenopathy. Supple, full range of motion without nuchal rigidity, or vertebral point tenderness. No Meningismus. Chest/axilla: Normal chest wall appearance and motion. Nontender with no deformity. No lesions are appreciated. Cardiovascular: Regular rate and rhythm with a normal S1 and S2. No gallops, murmurs, or rubs. Normal PMI, no JVD. No pulse deficits. Abdomen/GI: Soft, non-tender, with normal bowel sounds. No distension or tympany. No guarding or rebound. No evidence of tenderness throughout. Back: No spinal tenderness. No costovertebral tenderness. Full range of motion. Female : Normal external genitalia. Skin: Warm, dry with normal turgor. Normal color with no rashes, no lesions, and no evidence of cellulitis. MS/ Extremity: Pulses equal, no cyanosis. Neurovascular intact. Full, normal range of motion. Neuro: Awake and alert, GCS 15, oriented to person, place, time, and situation. Cranial nerves II-XII grossly intact. Motor strength 5/5 in all extremities. Sensory grossly intact. Cerebellar exam normal. Normal gait. Psych: Awake, alert, with orientation to person, place and time. Behavior, mood, and affect are within normal limits. 09:55 Musculoskeletal/extremity: DVT Exam: No signs of deep vein thrombosis. no pain, no trent swelling, no tenderness, negative Homans' sign noted on exam, no appreciated bluish discoloration, no erythema, no increased warmth. Vital Signs: 09:33 BP 116 / 58; Pulse 90; Resp 16 S; Temp 98.8(O); Pulse Ox 96% on R/A; iw 10:00 BP 130 / 60; Pulse 95; Resp 18 S; Pulse Ox 95% on R/A; aa5 10:30 BP 106 / 60; Pulse 82; Resp 16 S; Pulse Ox 94% on R/A; aa5 11:00 BP 111 / 60; Pulse 68; Resp 16 S; Pulse Ox 96% on R/A; aa5 12:00 BP 128 / 67; Pulse 73; Resp 16 S; Temp 98.7(O); Pulse Ox 96% on R/A; aa5 13:00 BP 145 / 63; Pulse 68; Resp 18 S; Pulse Ox 95% on R/A; aa5 MDM: 09:39 Patient medically screened. trent 09:53 Differential diagnosis: Anemia asthma, Bronchitis CHF exacerbation, Chronic Obstructive trent Pulmonary Disease pneumonia, pulmonary edema, Pulmonary Embolism reactive airway disease, Sepsis. Antibiotic administration: Not indicated. The patient's Wells Deep Vein Thrombosis Score was calculated as follows: Total Score: 0-2 Pts- Low Risk. The patient's pulmonary embolism risk score was calculated as follows: Total Score: 0-2 points. This patient was found to be at low risk for a pulmonary embolism by using the Well's assessment criteria. Immunization status: Pneumococcal vaccine: Influenza vaccine: Data reviewed: vital signs, nurses notes, lab test result(s), EKG, radiologic studies, plain films. Data interpreted: monitor worker: rate is 90 beats/min, Pulse oximetry: on room air is 96 %. Test interpretation: by ED physician or midlevel provider: plain radiologic studies. Counseling: I had a detailed discussion with the patient and/or guardian regarding: the historical points, exam findings, and any diagnostic results supporting the discharge/admit diagnosis, lab results, radiology results, the need for further work-up and treatment in the hospital. 10/16 09:51 Order name: Basic Metabolic Panel; Complete Time: 11:37 trent 10/16 09:51 Order name: CBC with Diff; Complete Time: 12:20 trent 10/16 09:51 Order name: LFT's; Complete Time: 11:37 trent 10/16 09:51 Order name: Magnesium; Complete Time: 11:37 trent 10/16 09:51 Order name: NT PRO-BNP; Complete Time: 11:37 trent 10/16 09:51 Order name: Troponin (emerg Dept Use Only); Complete Time: 11:37 trent 10/16 09:51 Order name: XRAY Chest (1 view); Complete Time: 11:37 trent 10/16 09:51 Order name: Lactate; Complete Time: 11:37 trent 10/16 09:51 Order name: D-Dimer; Complete Time: 11:37 trent 10/16 09:51 Order name: Procalcitonin; Complete Time: 11:37 trent 10/16 09:51 Order name: Blood Culture Adult (2) trent 10/16 10:46 Order name: Chest For PE Angio CT; Complete Time: 11:37 bd 10/16 11:45 Order name: Urine Dipstick--Ancillary (enter results); Complete Time: 12:20 bd 10/16 12:02 Order name: Manual Differential; Complete Time: 12:20 EDMS 10/16 09:51 Order name: EKG; Complete Time: 09:52 trent 10/16 09:51 Order name: Cardiac monitoring; Complete Time: 09:56 trent 10/16 09:51 Order name: EKG - Nurse/Tech; Complete Time: 10:23 trent 10/16 09:51 Order name: IV Saline Lock; Complete Time: 10:23 trent 10/16 09:51 Order name: Labs collected and sent; Complete Time: 10:23 trent 10/16 09:51 Order name: O2 Per Protocol; Complete Time: 09:56 trent 10/16 09:51 Order name: O2 Sat Monitoring; Complete Time: 09:56 trent 10/16 09:51 Order name: Urine Dipstick-Ancillary (obtain specimen); Complete Time: 11:58 [facility] Administered Medications: 10:31 Drug: NS 0.9% 1000 ml Route: IV; Rate: 125 ml/hr; Site: right forearm; aa5 13:15 Drug: predniSONE 20 mg Route: PO; aa5 Disposition: 10/17/19 12:40 Discharged to Home. Impression: Dyspnea, Pneumonia, unspecified organism - bilateral multifocal. - Condition is Fair. - Discharge Instructions: Community-Acquired Pneumonia, Adult, Shortness of Breath, Shortness of Breath, [id number], Community-Acquired Pneumonia, Adult, [id number], COVID-19. - Prescriptions for Prednisone 20 mg Oral Tablet - take 1 tablet by ORAL route every 12 hours for 7 days; 13 tablet. - Medication Reconciliation Form, Thank You Letter, Antibiotic Education, Prescription Opioid Use form. - Follow up: Private Physician; When: 2 - 3 days; Reason: Recheck today's complaints, Continuance of care, Re-evaluation by your physician. Follow up: Srinath Diaz MD; When: 2 - 3 days; Reason: Recheck today's complaints, Continuance of care, Re-evaluation by your physician. - Problem is new. - Symptoms have improved. Signatures: Dispatcher [employer] EDRaphael Granger MD MD cha Williams, Irene, RN RN iw Calderon, Audri, RN RN aa5 Per Mccullough FNP-C [id number] Corrections: (The following items were deleted from the chart) 12:37 11:46 Hospitalization Ordered by Prince Sheryl ROMERO for Inpatient Admission. Preliminary [facility] diagnosis is Pneumonia due to other specified bacteria - bilateral, multifocal; Fever, unspecified; SARS-associated coronavirus as the cause of diseases classified elsewhere. Bed requested for Telemetry/MedSurg (Inpatient). Status is Inpatient Admission. Condition is Fair. Problem is new. Symptoms have improved. [facility] 13:33 12:40 10/17/2019 12:40 Discharged to Home. Impression: Dyspnea; Pneumonia, unspecified aa5 organism - bilateral multifocal. Condition is Fair. Forms are Medication Reconciliation Form, Thank You Letter, Antibiotic Education, Prescription Opioid Use. Follow up: Private Physician; When: 2 - 3 days; Reason: Recheck today's complaints, Continuance of care, Re-evaluation by your physician. Follow up: Srinath Diaz; When: 2 - 3 days; Reason: Recheck today's complaints, Continuance of care, Re-evaluation by your physician. Problem is new. Symptoms have improved. trent
[2019-10-17 11:51] LABS: Urine Blood TRACE (NEG); Urine Glucose NEGATIVE (NEG); Urine Protein NEGATIVE (NEG); Urine Specific Gravity 1.015 (1.005-1.030)
[2019-10-17 12:02] LABS: Platelet Estimate INCR; Platelets, Giant FEW PRESENT
[2019-10-17 12:03] LABS: Blood Morphology Comment NOTED (NOT SEEN); Macrocytosis 2+
--- NOTE | 2019-10-17 13:01 | P.CNS ---
Date of Consult: 10/17/19 Reason for Consult: Possible admission Requesting Physician: Raphael Lindo Chief Complaint: Shortness of breath History of Present Illness: 88-year-old female with history of hypertension who tested positive for COVID approximately a week and half ago presents to the emergency department for shortness of breath. During interview patient reports that the shortness of breath has not changed in intensity over the course of last week and a half. Patient reports that her breathing is okay most the time but every once in a while. She has an episode where she feels slightly more short of breath. Patient reports that she is not having much of an appetite. Patient recently completed a course of oral prednisone that she has described during her last emergency room visit. During her evaluation in the emergency department patient had full cardiac workup and a CT scan to rule out pulmonary embolism which was negative. Labs are unremarkable. ED provider wishes to admit patient for shortness of breath. When I saw the patient in the emergency department she was not in any respiratory distress. Patient is able to speak in full sentences without any difficulty. While patient was speaking in full sentences oxygen saturations remained between 96 and 100% without oxygen therapy. Patient states that she feels her breathing is okay. Patient denies any nausea vomiting or diarrhea, just reports that she does not have much of an appetite. Allergies No Known Allergies Allergy (Verified 11/13/16 10:04) Home Medications: Hydroxyurea [Hydrea*] 500 mg PO BID 11/13/16 Tolterodine Tartrate [Detrol LA*] 2 mg PO BEDTIME 11/13/16 Valsartan [Diovan*] 40 mg PO [id number] 11/13/16 Hydrocodone 5/APAP 325 [[place] 5/325*] 1 tab PO Q4H PRN #20 tab 11/29/16 Rivaroxaban [Xarelto] 10 mg PO DAILY #10 tablet 11/29/16 - Past Medical/Surgical History Diabetic: No -: htn -: arthritis -: left total knee- 11-25-16 Psychosocial/ Personal History: Patient lives at home with her 2 daughters. - Social History Smoking Status: Never smoker Alcohol use: No CD- Drugs: No Caffeine use: No Place of Residence: Home Review of Systems 10-point ROS is otherwise unremarkable Respiratory: Shortness of Breath Physical Examination General: Alert, In no apparent distress HEENT: Atraumatic, PERRLA, Mucous membr. moist/pink, EOMI, Sclerae nonicteric Neck: Supple, 2+ carotid pulse no bruit, No LAD, Without JVD or thyroid abnormality Respiratory: Clear to auscultation bilaterally, Normal air movement Cardiovascular: Regular rate/rhythm, Normal S1 S2 Gastrointestinal: Normal bowel sounds, No tenderness Musculoskeletal: No tenderness Integumentary: No rashes Neurological: Normal gait, Normal speech, Normal tone, Normal affect Lymphatics: No axilla or inguinal lymphadenopathy Laboratory Data (last 24 hrs) 10/17/19 10:15: WBC 9.1 D, Hgb 10.4 L, Hct 29.9 L, Plt Count 545 H D 10/17/19 10:15: Sodium 135 L, Potassium 4.1, BUN 26 H, Creatinine 1.10, Glucose 174 H, Magnesium 2.2, Total Bilirubin 1.0, AST 18, ALT 38, Alkaline Phosphatase 56 Conclusions/Impression: 88-year-old female with history of hypertension who tested positive for COVID approximately a week and half ago presents to the emergency department for shortness of breath. During interview patient reports that the shortness of breath has not changed in intensity over the course of last week and a half. Patient reports that her breathing is okay most the time but every once in a while. She has an episode where she feels slightly more short of breath. Patient reports that she is not having much of an appetite. Patient recently completed a course of oral prednisone that she has described during her last emergency room visit. During her evaluation in the emergency department patient had full cardiac workup and a CT scan to rule out pulmonary embolism which was negative. Labs are unremarkable. ED provider wishes to admit patient for shortness of breath. When I saw the patient in the emergency department she was not in any respiratory distress. Patient is able to speak in full sentences without any difficulty. While patient was speaking in full sentences oxygen saturations remained between 96 and 100% without oxygen therapy. Patient states that she feels her breathing is okay. Patient denies any nausea vomiting or diarrhea, just reports that she does not have much of an appetite. Discussed at length with patient that at this time she likely does not need to stay in the hospital. Due to patient preference also discussed with patient's daughters were comfortable with the idea of sending her home. Also discussed case with pulmonology who recommended prolonged steroid therapy with prednisone 20 mg p.o. b.i.d. for 7 more days. Discussed this with my attending as well. Patient vital signs otherwise stable. No oxygen requirement to maintain saturations above 96%. Recommended to family that they obtain pulse oximeter to measure patient's oxygen saturation. Family also states that she has a daughter that lives with her. Recommend close observation at home with pulse oximetry and strict return precautions for significantly worsening shortness of breath or oxygen saturations less than 92%. Discussed this with ED attending who was amendable to plan. Patient and family verbalized understanding to return immediately with significant worsening of symptoms or low oxygen levels. Patient will be discharged from the emergency department. Critical Care: No Time Spent Managing Pts care (In Minutes): 55
[2019-10-17] MEDS ORDERED: predniSONE 20 MG TAB ONE (13:06)
[2019-10-17 13:45] VITALS: TEMP 98.7
[2019-10-17 13:46] VITALS: BP 145/63; O2SAT 95
--- NOTE | 2019-10-18 11:05 | EKG ---
Test Date: 2019-10-17 Test Time: 10:14:54 Mold Carrier: SADIE MEASUREMENT RESULTS: Intervals: Rate: 81 NC: QRSD: 88 QT: 366 QTc: 425 [place]: P: NC: QRS: 13 T: 68 INTERPRETIVE STATEMENTS: Accelerated Junctional rhythm Abnormal ECG Compared to ECG 10/08/2019 10:08:47 Accelerated junctional rhythm now present Sinus rhythm no longer present Electronically Signed On 10-18-19 11:02:07 CDT by Milo Sethi
== END 2019-10-17 13:33 | disposition home or self-care (01) ==
LOC: ER 09:04
DX: J18.9 Pneumonia, unspecified organism (principal); I10 Essential (primary) hypertension
CPT/HCPCS: 93005; 87040 ×2; 85025; 80048; 36415; 83735; 87205 ×2; 85379; 80076; 83605; 81003; 84484; 84145; 83880; 71275; 71045; 99284; Q9967; J7030; J7512